=== PATIENT | female | born 1990 | race Two or more races ===

== ENCOUNTER 2025-09-12 21:19 | Emergency (ER) | payer OTHER ==
[~2025-09-12] VITALS: Ht 152.4 cm; Wt 53.5 kg
[2025-09-12] MEDS ORDERED: NEURONTIN300 MG PO (21:32)
[2025-09-12] MEDS ORDERED: DEXAMETHASONE SODIUM PHOSPHATE 4 MG/ML VIAL IM ONE (23:30)
[2025-09-12] MEDS ORDERED: ORPHENADRINE CITRATE 30 MG/ML AMPUL IM ONE (23:30)
[2025-09-12] MEDS ORDERED: DEXAMETHASONE SODIUM PHOSPHATE 4 MG/ML VIAL ONE (23:42)
[2025-09-12] MEDS ORDERED: ORPHENADRINE CITRATE 30 MG/ML AMPUL ONE (23:42)
[2025-09-13 00:08] LABS: BASO % 0.6 % (0.1-1.2); EOS # 0.20 (0.04-0.54); EOS % 2.2 % (0.7-7.0); LYMPH # 3.48 (1.18-3.74); LYMPH % 38.7 % (19.3-53.1); MEAN PLATELET VOLUME 10.50 fl (9.4-12.4); MONO # 0.59 (0.24-0.82); MONO % 6.6 % (4.7-12.5); NEUT # 4.66 (1.56-6.13); NEUT % 51.7 % (34.0-71.1); RED CELL DISTRIBUTION WIDTH 13.0 % (11.6-14.4)
[2025-09-13 00:50] LABS: INR 0.99
[2025-09-13 00:51] LABS: ERYTHROCYTE SEDIMENTATION RATE 5 mm/hr (0-20)
[2025-09-13 00:57] LABS: ALT/SGPT 25 U/L (12-78); AST/SGOT 15 U/L (15-37); BILIRUBIN TOTAL 0.49 mg/dL (0.3-1.2); BUN CREA RATIO 19 (7.0-25.0); CREATININE SERUM 0.64 mg/dL (0.55-1.02); GFR 106.22; GLOBULINA 3.2 G/DL (2.4-3.5); GLUCOSE FASTING 97 mg/dL (65-100); HCG QUANTITATIVE < 1 mUI/mL (1-3); OSMOLALITY SERUM 283 MOSM/KG (275-295)
[2025-09-13] MEDS ORDERED: MEDROL8 MG PO (03:32)
== END 2025-09-13 04:03 ==
LOC: ER 21:19
DX: R20.0 Anesthesia of skin (principal)